=== PATIENT | female | born 1955 | race Caucasian/White ===

== ENCOUNTER → 2019-04-02 | Outpatient (CLI) | payer OTHER ==
[~2019-04-02] MED LIST: IOPHEN DM-100 MG/5 M PO; XYZAL5 MG PO
== END | disposition home or self-care (01) ==
LOC: SONOGRAMA 14:20
DX: E04.2 Nontoxic multinodular goiter (principal); E06.5 Other chronic thyroiditis; J44.1 Chronic obstructive pulmonary disease with (acute) exacerbation; J01.80 Other acute sinusitis

== ENCOUNTER 2019-04-10 14:18 | Outpatient (CLI) | payer OTHER | END 2019-04-10 14:20 | disposition home or self-care (01) | LOC: TOM 14:18 | DX: R05 Cough (principal) ==

== ENCOUNTER 2022-06-27 10:49 | Outpatient (CLI) | payer OTHER | END 2022-06-27 10:56 | disposition home or self-care (01) | LOC: SONOGRAMA 10:49 | PROVIDERS: ATTEND Internal Medicine Endocrinology, Diabetes & Metabolism | DX: E04.1 Nontoxic single thyroid nodule (principal); E04.9 Nontoxic goiter, unspecified ==

== ENCOUNTER 2022-07-06 10:28 | Outpatient (CLI) | payer OTHER | END 2022-07-06 10:43 | disposition home or self-care (01) | LOC: TOM 10:28 | PROVIDERS: ATTEND Internal Medicine Pulmonary Disease | DX: J45.40 Moderate persistent asthma, uncomplicated (principal); J30.1 Allergic rhinitis due to pollen; J98.11 Atelectasis; R06.02 Shortness of breath ==

== ENCOUNTER 2022-12-25 13:28 | Outpatient (CLI) | payer OTHER | END 2022-12-25 13:30 | disposition home or self-care (01) | LOC: NUCLEAR 13:28 | DX: M81.0 Age-related osteoporosis without current pathological fracture (principal); E04.9 Nontoxic goiter, unspecified; I11.9 Hypertensive heart disease without heart failure ==

== ENCOUNTER 2023-01-26 13:02 | Outpatient (CLI) | payer OTHER | END 2023-01-26 13:07 | disposition home or self-care (01) | LOC: RAD 13:02 | PROVIDERS: ATTEND Internal Medicine | DX: M54.2 Cervicalgia (principal); M54.51 Vertebrogenic low back pain; M54.6 Pain in thoracic spine; J44.9 Chronic obstructive pulmonary disease, unspecified ==

== ENCOUNTER → 2023-03-23 | Outpatient (CLI) | payer OTHER | END | disposition home or self-care (01) | LOC: MRI 14:02 | PROVIDERS: ATTEND Physical Medicine & Rehabilitation | DX: M54.12 Radiculopathy, cervical region (principal) | CPT/HCPCS: 72141 ==

== ENCOUNTER 2023-06-27 10:40 | Outpatient (CLI) | payer OTHER ==
[2023-08-30] MEDS ORDERED: COZAAR50 MG PO (09:23)
[2023-08-30] MEDS ORDERED: CRESTOR10 MG PO (09:24)
[2023-08-30] MEDS ORDERED: SYNTHROID112 MCG PO (09:24)
[2023-08-30] MEDS ORDERED: NORVASC2.5 M1 PO (09:24)
== END 2023-06-27 10:47 | disposition home or self-care (01) ==
LOC: TOM 10:40
PROVIDERS: ATTEND Otolaryngology
DX: H90.2 Conductive hearing loss, unspecified (principal)

== ENCOUNTER 2024-02-26 10:43 | Outpatient (CLI) | payer OTHER ==
[~2024-02-26 10:43] MED LIST changes: +CIPROFLOXACIN2.5 ML OTIC; +CLEOCIN HCL300 MG PO; +COZAAR50 MG PO; +CRESTOR10 MG PO; +NORVASC2.5 M1 PO; +SYNTHROID112 MCG PO
== END 2024-02-26 10:59 | disposition home or self-care (01) ==
LOC: TOM 10:43
PROVIDERS: ATTEND Internal Medicine Pulmonary Disease
DX: J30.1 Allergic rhinitis due to pollen (principal); J45.41 Moderate persistent asthma with (acute) exacerbation; J98.11 Atelectasis; R91.8 Other nonspecific abnormal finding of lung field; R06.02 Shortness of breath

== ENCOUNTER 2024-09-30 13:11 | Outpatient (CLI) | payer OTHER | END 2024-09-30 13:14 | disposition home or self-care (01) | LOC: TOM 13:11 | PROVIDERS: ATTEND Otolaryngology Otology & Neurotology | DX: H90.A12 Conductive hearing loss, unilateral, left ear with restricted hearing on the contralateral side (principal); H61.301 Acquired stenosis of right external ear canal, unspecified ==

== ENCOUNTER 2024-10-28 10:34 | Outpatient (CLI) | payer OTHER | END 2024-10-28 10:37 | disposition home or self-care (01) | LOC: RAD 10:34 | PROVIDERS: ATTEND Internal Medicine | DX: M25.512 Pain in left shoulder (principal) ==